=== PATIENT | female | born 1980 | race Caucasian/White ===

== ENCOUNTER 2022-04-29 13:41 | Outpatient (CLI) | payer BC, SELFPAY ==
[2022-04-30 02:49] LABS: Chlamydia DNA Amplified* Not Detected (No Detected); GC DNA Amplified* Not Detected (No Detected)
== END 2022-04-29 13:42 | disposition home or self-care (01) ==
PROVIDERS: PCP Physician Assistant Medical; Visit Provider Registered Nurse
DX: N89.8 Other specified noninflammatory disorders of vagina (principal); R30.0 Dysuria; Z11.3 Encounter for screening for infections with a predominantly sexual mode of transmission
CPT/HCPCS: 86592; 86703; 86803; 87086; 87340; 87491; 87591

== ENCOUNTER 2022-05-20 10:27 | Outpatient (CLI) | payer BC, SELFPAY ==
[2022-05-20 15:07] LABS: Chlamydia DNA Amplified* NOT DETECTED (No Detected); GC DNA Amplified* NOT DETECTED (No Detected)
== END 2022-05-20 10:28 | disposition home or self-care (01) ==
PROVIDERS: PCP Physician Assistant Medical; Visit Provider Registered Nurse
DX: Z01.419 Encounter for gynecological examination (general) (routine) without abnormal findings (principal); E66.9 Obesity, unspecified; N92.0 Excessive and frequent menstruation with regular cycle; Z11.3 Encounter for screening for infections with a predominantly sexual mode of transmission
CPT/HCPCS: 0353U; 84439; 84443; 87491; 87591

== ENCOUNTER 2022-05-25 19:12 | Outpatient (CLI) | payer BC, SELFPAY ==
--- NOTE | 2022-05-25 19:30 | CRLHL7_ITS ---
For Patients: As a result of the Century Cures Act, medical imaging exams and procedure reports are released immediately into your electronic medical record. You may view this report before your referring provider. If you have questions, please contact your health care provider. BILATERAL SCREENING MAMMOGRAM WITH COMPUTER-AIDED DETECTION AND TOMOSYNTHESIS TECHNIQUE: CC and MLO views were obtained. These mammographic images have been obtained using full-field digital technique. These mammographic images were interpreted with the benefit of computer-aided detection. Breast Tomosynthesis was used in this interpretation. COMPARISON FILM: Baseline. FINDINGS: There are scattered areas of fibroglandular density IMPRESSION: There is no radiographic evidence for malignancy. ASSESSMENT: BI-RADS Category 2: Benign RECOMMENDATION: Routine screening mammogram in 1 year. A lay language report of this examination will be provided to the patient. Reji Silva M.D. Diagnostic Radiologist [email or web address] Transcribed: 4:59 p.[email or web address] cheng/Dictated by: Reji Silva MD @ 05/26/2022 9:23:00 AM (Electronically Signed)
== END 2022-05-25 19:13 | disposition home or self-care (01) ==
LOC: MAMMO 19:14
PROVIDERS: PCP Physician Assistant Medical; Visit Provider Registered Nurse
DX: Z12.31 Encounter for screening mammogram for malignant neoplasm of breast (principal)
CPT/HCPCS: 77063; 77067

== ENCOUNTER 2022-05-27 16:46 | Outpatient (CLI) | payer BC, SELFPAY ==
--- NOTE | 2022-05-27 17:00 | CRLHL7_ITS ---
For Patients: As a result of the Century Cures Act, medical imaging exams and procedure reports are released immediately into your electronic medical record. You may view this report before your referring provider. If you have questions, please contact your health care provider. INDICATION: Menorrhagia COMPARISON: none TECHNIQUE: 2D samposn scale and color Doppler images were acquired of the pelvis using a transabdominal and transvaginal approach. FINDINGS: Sonographic images demonstrate a normal size and smooth outer contour of the uterus. Uterus measures 10.0 cm in length by 6.2 cm in AP diameter by 6.5 cm in transverse dimension. The myometrium has a normal uniform echotexture. The endometrial lining measures 11 mm in composite thickness. Ovoid hyperechoic structure is present measuring 1.4 x 0.6 x 0.9 cm which is associated with the endometrium. The right ovary measures 4.0 x 1.9 x 3.3 cm in size and the left ovary measures 2.6 x 1.1 x 2.1 cm. Small hemorrhagic right ovarian cyst measuring 1.7 x 1.4 x 1.7 cm. The ovaries demonstrate normal arterial and venous blood flow on color Doppler analysis. There are no suspicious fluid collections within the cul-de-sac. IMPRESSION: Endometrial polyp appears to be present measuring 1.4 x 0.6 x 0.9 cm. Endometrial thickness 1.1 cm. Dictated by Reji Silva MD @ 05/28/2022 11:55:57 AM (Electronically Signed)
== END 2022-05-27 16:47 | disposition home or self-care (01) ==
LOC: US 16:47
PROVIDERS: PCP Physician Assistant Medical; Visit Provider Registered Nurse
DX: N92.0 Excessive and frequent menstruation with regular cycle (principal); N84.0 Polyp of corpus uteri
CPT/HCPCS: 76830; 76856

== ENCOUNTER 2022-08-06 15:12 | Outpatient (CLI) | payer BC, SELFPAY | END 2022-08-06 15:13 | disposition home or self-care (01) | PROVIDERS: PCP Physician Assistant Medical; Visit Provider Obstetrics & Gynecology | DX: E03.8 Other specified hypothyroidism (principal); E66.9 Obesity, unspecified; N92.0 Excessive and frequent menstruation with regular cycle | CPT/HCPCS: 84443; 84481 ==

== ENCOUNTER 2022-11-24 09:00 | Outpatient (CLI) | payer BC, SELFPAY ==
[2022-11-24 14:28] LABS: Chlamydia DNA Amplified* NOT DETECTED (No Detected); GC DNA Amplified* NOT DETECTED (No Detected)
== END 2022-11-24 09:01 | disposition home or self-care (01) ==
PROVIDERS: PCP Physician Assistant Medical; Visit Provider Obstetrics & Gynecology
DX: N92.0 Excessive and frequent menstruation with regular cycle (principal)
CPT/HCPCS: 87491; 87591

== ENCOUNTER 2023-04-18 15:53 | Outpatient (CLI) | payer BC, SELFPAY | END 2023-04-18 15:54 | disposition home or self-care (01) | LOC: NFLDREF 15:53 | PROVIDERS: PCP Physician Assistant Medical; Visit Provider Family Medicine | DX: Z01.818 Encounter for other preprocedural examination (principal) | CPT/HCPCS: 80048 ==

== ENCOUNTER 2023-05-05 08:34 | Day surgery (SDC) | payer BC, SELFPAY ==
[2023-05-05] VITALS (19 sets, daily range): BP systolic 92–125; BP diastolic 58–78; PULSE 50–98; RESP 14–18; TEMP 36.1–37.2; O2SAT 96–100; BMI 33.8
[2023-05-05] MEDS: SODIUM CHLORIDE 0.9 % (FLUSH) 10 ML SYRINGE IVF (09:00)
[2023-05-05] MEDS: LACTATED RINGERS 1000 ML 1,000 ML 100 ML IV ×2 (09:00→11:59)
[2023-05-05 09:24] LABS: Hemoglobin* 13.6 gm/dL (12.0-16.0)
[2023-05-05 09:37] LABS: Ur HCG Qualitative* Negative (Negative)
[2023-05-05 09:39] LABS: Creatinine* 0.7 mg/dL (0.5-1.5); Est. Creatinine Clearance* 101.81; Estimated Glomerular Filt Rate 111 ml/min
--- NOTE | 2023-05-05 10:42 | W.PM.H&PU ---
History & Physical Update History & Physical Update H&P Reviewed and patient assessed: No changes noted H&P Updates: She had tubal ligation in 2017, not salpingectomy. I will plan to remove tubal remnants if feasible. Patient agrees to plan. Consent updated.
[2023-05-05] MEDS: CEFAZOLIN 2 GM INJ IVP (10:55)
--- NOTE | 2023-05-05 11:13 | W.ANESCHARGE ---
Anesthesia Charges Start Date/Time Anesthesia Start Date: 05/05/23 Anesthesia Start Time: 10:40 Stop Date/Time Anesthesia Stop Date: 05/05/23 Anesthesia Stop Time: 13:03
[2023-05-05] MEDS: VASOPRESSIN 20 UNIT/ML INJ INJECTION (11:25)
[2023-05-05] MEDS: METHYLENE BLUE 1 % 10 ml 100 MG INJECTION (11:54)
--- NOTE | 2023-05-05 13:05 | W.ANESCHARGE ---
Anesthesia Charges Start Date/Time Anesthesia Start Date: 05/05/23 Anesthesia Start Time: 10:40 Stop Date/Time Anesthesia Stop Date: 05/05/23 Anesthesia Stop Time: 13:03
--- NOTE | 2023-05-05 13:27 | SUR.PHASEI ---
patient meets pacu d/c criteria
--- NOTE | 2023-05-05 13:34 | P.GYNPRC_ITS ---
Procedure Note Date of procedure: 05/05/23 Pre-op diagnosis: Menorrhagia, stage II uterine prolapse Post-op diagnosis: same Procedure: Total vaginal hysterectomy with bilateral fimbriectomy, modified Mooney's culdoplasty, cystoscopy Anesthesia: MAC and regional Complications: None Surgeon: Mary Garcia MD Stars Coordinator: Marcie Mata Estimated blood loss (mL): 50 IV fluids (mL): 1,700 Urine Output (mL): 75 Pathology: specimen obtained, sent to pathology (Uterus with bilateral fimbria; intent to send specimen to pathology confirmed at time of postoperative debrief) Condition: stable Disposition: floor Findings: 1. Upon pelvic exam under anesthesia, the cervix and vagina were normal in appearance. There was descent of the cervix to the hymeneal ring. Uterus was mobile and anteverted, of normal size and texture. There were no palpable adnexal masses. 2. Uterine weight was 151 g. Bilateral fimbria were normal in appearance. There was a simple right ovarian cyst measuring approximately 2.5 cm in greatest dimension. Left ovary was entirely normal in appearance. 3. Upon cystoscopy, performed multiple times during the procedure and after placement of the final suspension suture, bilateral ureteral jets were noted and there was no injury to the bladder mucosa or dome. Procedure Description: PROCEDURE: Patient was taken to the operating room with IV running. She received cefazolin in preoperative prophylaxis. She was positioned on the operating table in dorsal lithotomy position with candy-cane stirrups. She was prepped and draped in the usual sterile fashion. Ramos catheter was inserted. Exam under anesthesia revealed the above-noted findings. The anterior and posterior lips of the cervix were grasped with double toothed tenacula. The cervicovaginal junction was infiltrated with a total of approximately 15 mL of dilute vasopressin. Cervicovaginal junction was incised with the scalpel circumferentially. The vaginal epithelium was dissected off the uterosacral ligaments with a combination of blunt and sharp dissection bilaterally. The anterior colpotomy was performed sharply and a Maya was placed between the uterus and bladder. Posterior colpotomy was performed sharply and a long weighted speculum was placed in the cul-de-sac. Bilateral uterosacral ligaments were clamped, cut, and suture ligated, and tagged for later identification. The cardinal ligaments were clamped, cut, and suture ligated. The broad ligaments and bilateral utero-ovarian ligaments were cauterized and transected with the LigaSure Impact device. This freed the uterus from its attachments and it was delivered through the vagina. Attention was first turned to the left tube and ovary. The fimbriated portion was easily visualized and accessible. The pedicle was crossclamped with LigaSure Impact device, cauterized, and transected, removing the fimbria. Hemostasis was noted. Attention was then turned to the right tube and ovary, which demonstrated a simple ovarian cyst, assumed to be functional. In a similar fashion, the pedicle to the right fimbria was crossclamped with LigaSure Impact device, cauterized, and transected. Again, hemostasis was noted. The patient was placed in Trendelenburg position. Two modified Mooney's sutures were placed as follows. The 1st was placed approximately 1 cm medial to the left vaginal angle, through the left uterosacral ligament approximately 2.5 cm above the vaginal cuff, pulled through the peritoneum of the cul-de-sac, through the right uterosacral ligament, approximately 2.5 cm above the cuff, and through the vagina about 1 cm from the right vaginal cuff angle. This was labeled #1 and tagged for later identification. Another stitch was placed just medial to the 1st through the vaginal cuff, and just above the 1st along the uterosacral ligaments and the peritoneum of the cul-de-sac. This was labelled #2 and tagged for later identification. The patient was given methylene blue for better visualization of ureteral jets. The first of several cystoscopies was performed, revealing bilateral ureteral jets and no damage to the bladder mucosa. The cystoscope was removed. Then, the modified Mooney's sutures were tied down beginning with that labeled #2 and then #1. In addition, the pedicles of the uterosacral ligament were tied together in the midline. After tying down each of the sutures, cystoscopy was performed, revealing bilateral ureteral jets. Thereafter, the vaginal epithelium was closed in a vertical fashion with interrupted [id number] sutures of 0 Vicryl. The procedure was deemed complete and the Ramos catheter was replaced. The patient tolerated the procedure well and was taken to recovery area in stable condition.
[2023-05-05] MEDS: LACTATED RINGERS 1000 ML 1,000 ML 30 ML IV (15:01)
[2023-05-05] MEDS: KETOROLAC 30 MG/ML inj IVP (19:41)
[2023-05-05] MEDS: ACETAMINOPHEN 325 MG TABLET 650 MG PO (23:43)
[2023-05-06 04:01] VITALS: BP 95/60; PULSE 90; RESP 14; TEMP 36.5
[2023-05-06 05:13] LABS: Hemoglobin* 11.5 gm/dL (12.0-16.0)
[2023-05-06 05:29] LABS: Creatinine* 0.7 mg/dL (0.5-1.5); Est. Creatinine Clearance* 101.81; Estimated Glomerular Filt Rate 111 ml/min
[2023-05-06] MEDS: ACETAMINOPHEN 325 MG TABLET 650 MG PO (07:54)
[2023-05-06 08:14] VITALS: RESP 16
[2023-05-06 08:23] VITALS: BP 115/67; PULSE 66; RESP 16; TEMP 37.1; O2SAT 91
--- NOTE | 2023-05-06 09:50 | PM.GYNDS1 ---
DS: Providers Provider Date Seen: 05/06/23 Primary care physician: Alexa Roberts PA-C Attending Physician on discharge: Mary Garcia MD Date of Discharge: 05/06/23 DS: Diagnosis Discharge Diagnosis (1) H/O total vaginal hysterectomy: Status: Acute Problem details: With modified Mooney's culdoplasty, bilateral fimbriectomy, and cystoscopy 05/05/23 (2) Menorrhagia with regular cycle: Status: Acute (3) Uterine prolapse: Status: Acute Problem details: Stage II on exam under anesthesia, negligible on exam when patient awake, no symptoms DISTRIBUTION SUPERINTENDENT-Discharge Summary Hospital Course Hospital Course Narrative: Patient is a 43 year old woman admitted on 05/04/2021 for total vaginal hysterectomy with bilateral fimbriectomy, modified Mooney's culdoplasty and cystoscopy. Indication for surgery: Menorrhagia with regular cycle, unresponsive to medical management. She had a symptomatic stage II uterine prolapse noted when under anesthesia. Intraoperative findings were notable for stage II uterine prolapse. Uterus was 151 g and normal appearance. Bilateral fimbria were normal in appearance. She had a functional appearing simple right ovarian cyst. Cystoscopy showed normal bladder findings. She had an uncomplicated surgery. Postoperative course has been uneventful. Vitals have been stable. She has remained afebrile. Today, on postoperative day 1, she reports the pain is well controlled. She has been able to ambulate Without difficulty. She is tolerating regular diet. She is passing flatus. Ramos catheter has been removed, and she is voiding without difficulty. Time Spent with Patient Time attestation: Total time spent providing and/or coordinating discharge services: Time spent: Less than 30 minutes DISTRIBUTION SUPERINTENDENT - Exam Physical Exam: Vital signs: Temp Pulse Resp BP Pulse Ox O2 Del Method 98.7 F 66 16 115/67 91 Room Air 05/06/23 08:23 05/06/23 08:23 05/06/23 08:23 05/06/23 08:23 05/06/23 08:23 05/06/23 08:23 Narrative: Physical exam: Vitals as noted above. General: No acute distress Psych: Alert and oriented x 3, full affect HEENT: Normocephalic, atraumatic Abdomen: Normoactive bowel sounds, soft, no tenderness, rebound, or guarding, no masses, no hepatosplenomegaly, no hernias Lower extremities: No edema or erythema DISTRIBUTION SUPERINTENDENT - DS: Data Data Completed and Pending Labs on day of discharge: Labs from last 24 hours 05/06/23 05/05/23 05:09 09:15 Hgb 11.5 L Creatinine 0.7 Estimated Creat Clear 101.81 Estimated GFR 111 Blood Type A Positive Antibody Screen NEGATIVE Procedures Procedures: Procedures Operation Date: 05/05/23 10:20 Actual Procedure Side Surgeon p Total Vaginal Hysterectomy, Modified Mooney's Culdoplasty, Cystoscopy, bilateral fimbria removal Mary Garcia MD Complications: none Discharge Plan Discharge Disposition: Home w/ Parent or Adult Discharging Surgeon: Mary Garcia Follow-Up Appointment: [address] Garcia Prescriptions: New acetaminophen 325 mg Tablet 650 mg PO Q4H PRN (Reason: minor pain) Qty: 0 0RF docusate sodium 100 mg Capsule 100 mg PO BID PRN (Reason: Constipation) Qty: 0 0RF oxycodone 5 mg Tablet 5 mg PO Q4H PRN (Reason: Moderate Pain) Qty: 20 0RF Continued multivitamin [Daily Multi-Vitamin] Tablet 1 tab PO QAM ascorbic acid (vitamin C) 500 mg capsule PO cholecalciferol (vitamin D3) 25 mcg (1,000 unit) capsule 25 mcg PO QDAY calcium carbonate 500 mg calcium (1,250 mg) tablet 500 mg PO QDAY spironolactone 100 mg tablet 100 mg PO DAILY clindamycin phosphate 1 % lotion topical bimatoprost 0.03 % drops with applicator 1 drp topical QPM benzoyl peroxide 5 % cleanser topical BID tretinoin 0.05 % cream 1 applic topical QPM Activity Detail: No lifting greater than 20 lb for 6 weeks. Nothing per vagina for 6 weeks. No [address] while taking narcotic pain medicines. Discharge Diet: Regular Patient Instructions: Vaginal Hysterectomy (DC) Follow-up: Mary Garcia MD [Staff Physician] - Alexa Roberts PA-C [Primary Care Provider] - Discharge Orders: Discharge Order (Routine); Ordered 05/06/23 Ordered By: Mary Garcia
== END 2023-05-06 10:06 | disposition home or self-care (01) ==
LOC: OR 08:35 → OB 08:38
PROVIDERS: PCP Physician Assistant Medical; Visit Provider Obstetrics & Gynecology
PROC: (CPT 58263; principal; 2023-05-05 10:00)
DX: N81.2 Incomplete uterovaginal prolapse (principal); N92.0 Excessive and frequent menstruation with regular cycle; N83.291 Other ovarian cyst, right side
CPT/HCPCS: 58263; 00944; 36415; 51701; 81025; 82565; 85018; 86850; 86900; 86901; 88305; A9270; J0690; J1100; J1885; J2250; J2274; J2371; J2405; J2704; J3010; J7120

== ENCOUNTER 2023-09-05 13:53 | Outpatient (CLI) | payer BC, SELFPAY ==
--- NOTE | 2023-09-05 14:00 | CRLHL7_ITS ---
For Patients: As a result of the Century Cures Act, medical imaging exams and procedure reports are released immediately into your electronic medical record. You may view this report before your referring provider. If you have questions, please contact your health care provider. BILATERAL SCREENING MAMMOGRAM WITH COMPUTER-AIDED DETECTION AND TOMOSYNTHESIS TECHNIQUE: CC and MLO views were obtained. These mammographic images have been obtained using full-field digital technique. These mammographic images were interpreted with the benefit of computer-aided detection. Breast Tomosynthesis was used in this interpretation. COMPARISON FILM: 05/25/22. FINDINGS: There are scattered areas of fibroglandular density IMPRESSION: There is no radiographic evidence for malignancy. ASSESSMENT: BI-RADS Category 1: Negative RECOMMENDATION: Routine screening mammogram in 1 year. A lay language report of this examination will be provided to the patient. Reji Silva M.D. Diagnostic Radiologist [email or web address] Transcribed: 2:39 p.[email or web address] cheng/Dictated by: Reji Silva MD @ 09/05/2023 2:41:00 PM (Electronically Signed)
== END 2023-09-05 13:54 | disposition home or self-care (01) ==
LOC: MAMMO 13:53
PROVIDERS: PCP Physician Assistant Medical; Visit Provider Obstetrics & Gynecology
DX: Z12.31 Encounter for screening mammogram for malignant neoplasm of breast (principal)
CPT/HCPCS: 77063; 77067

== ENCOUNTER 2023-09-26 15:00 | Outpatient (CLI) | payer BC, SELFPAY | END 2023-09-26 15:01 | disposition home or self-care (01) | PROVIDERS: PCP Physician Assistant Medical; Visit Provider Physician Assistant Medical | DX: E03.8 Other specified hypothyroidism (principal) | CPT/HCPCS: 84443 ==

== ENCOUNTER 2024-05-31 13:04 | Outpatient (CLI) | payer BC, SELFPAY ==
[2024-05-31 20:36] LABS: Chlamydia DNA Amplified* NOT DETECTED (No Detected); GC DNA Amplified* NOT DETECTED (No Detected)
== END 2024-05-31 13:05 | disposition home or self-care (01) ==
PROVIDERS: PCP Physician Assistant Medical; Visit Provider Obstetrics & Gynecology
DX: Z98.84 Bariatric surgery status (principal); Z13.228 Encounter for screening for other metabolic disorders; Z13.6 Encounter for screening for cardiovascular disorders; Z13.21 Encounter for screening for nutritional disorder; Z11.3 Encounter for screening for infections with a predominantly sexual mode of transmission; Z11.4 Encounter for screening for human immunodeficiency virus [HIV]; Z11.59 Encounter for screening for other viral diseases
CPT/HCPCS: 80053; 80061; 82306; 82607; 83540; 83550; 86592; 86703; 86706; 86803; 87340; 87491; 87591

== ENCOUNTER 2025-01-22 15:44 | Outpatient (CLI) | payer BC, SELFPAY ==
--- NOTE | 2025-01-22 15:40 | CRLHL7_ITS ---
For Patients: As a result of the Century Cures Act, medical imaging exams and procedure reports are released immediately into your electronic medical record. You may view this report before your referring provider. If you have questions, please contact your health care provider. INDICATION: BILATEAL SCREENING MAMMOGRAM, ASYMPTOMATIC 45 Y/O FEMALE COMPARISON: 09/05/2023, 05/25/2022 TECHNIQUE: Digital mammogram in CC and MLO projections including computer-aided detection (CAD) and tomosynthesis. BREAST COMPOSITION: There are scattered areas of fibroglandular density. FINDINGS: No suspicious findings. ASSESSMENT: BI-RADS 1 Negative RECOMMENDATION: Annual screening mammogram. A lay language report of this examination will be provided to the patient. Dictated by: Reji Silva MD @ 01/23/2025 12:12:51 (Electronically Signed)
== END 2025-01-22 15:45 | disposition home or self-care (01) ==
LOC: MAMMO 15:44
PROVIDERS: PCP Physician Assistant Medical; Visit Provider Obstetrics & Gynecology
DX: Z12.31 Encounter for screening mammogram for malignant neoplasm of breast (principal)
CPT/HCPCS: 77063; 77067